=== PATIENT | male | born 1945 | race Caucasian/White ===

== ENCOUNTER 2017-06-13 09:22 | Emergency (ER) | payer OTHER, MEDICAID ==
[~2017-06-13] VITALS: Ht 160 cm; Wt 86.2 kg
[~2017-06-13 09:22] MED LIST: ALPR0.5T8 PO; ASPI81TA2 PO; TRAM50TA2 PO
[2017-06-13 09:34] VITALS: BP_SYST 157
--- NOTE | 2017-06-13 09:40 | NUR ---
Patient to ER bed 2 to gown for evaluation. Side rails up. Report given to Valeriano ROSA.
--- NOTE | 2017-06-13 09:41 | NUR ---
Pt reports having fallen 06/11/[address] broken [address]. C/O 05/11 left shoulder pain which increases with palp to humural head as well both active and passive ROM. Patient reports that during the fall he hit his chest and abdomen, but is not having any pain other than the shoulder at this time.
--- NOTE | 2017-06-13 09:43 | NUR ---
ER Dr. Mathis at bedside examining patient.
--- NOTE | 2017-06-13 10:00 | NUR ---
Sling applied.Pt tolerated well.
[2017-06-13] MEDS ORDERED: IBUPROFEN 600 MG TABLET PO ONE (10:15)
[2017-06-13 10:20] VITALS: BP_SYST 156
--- NOTE | 2017-06-13 10:20 | NUR ---
Patient given written and verbal discharge instructions and verbalizes understanding. ER MD discussed with patient the results and treatment provided. Patient in stable condition. ID arm band removed. Patient educated on pain management and to follow up with PMD. Pain Scale 5. Opportunity for questions provided and answered.
== END 2017-06-13 10:20 | disposition home or self-care (01) ==
LOC: SED 09:22
DX: S40.012A Contusion of left shoulder, initial encounter (principal); G89.29 Other chronic pain; Z79.899 Other long term (current) drug therapy; W01.0XXA Fall on same level from slipping, tripping and stumbling without subsequent striking against object, initial encounter; Y93.89 Activity, other specified; Y92.89 Other specified places as the place of occurrence of the external cause; Y99.8 Other external cause status
CPT/HCPCS: 73030; 99284

== ENCOUNTER 2018-11-18 12:53 | Emergency (ER) | payer OTHER, MEDICAID ==
[~2018-11-18] VITALS: Ht 160 cm; Wt 83.9 kg
[~2018-11-18 12:53] MED LIST changes: +ASPI-1155 PO; -ASPI81TA2 PO
[2018-11-18 14:30] VITALS: BP_SYST 178
[2018-11-18 16:00] VITALS: BP_SYST 178
[2018-11-18] MEDS ORDERED: KETOROLAC TROMETHAMINE 30 MG VIAL IM ONE (16:00)
== END 2018-11-18 16:00 | disposition home or self-care (01) ==
LOC: SED 12:53
DX: S46.911A Strain of unspecified muscle, fascia and tendon at shoulder and upper arm level, right arm, initial encounter (principal); I10 Essential (primary) hypertension; M19.90 Unspecified osteoarthritis, unspecified site; Z79.82 Long term (current) use of aspirin; Z79.899 Other long term (current) drug therapy; X50.0XXA Overexertion from strenuous movement or load, initial encounter; Y93.89 Activity, other specified; Y92.89 Other specified places as the place of occurrence of the external cause; Y99.8 Other external cause status
CPT/HCPCS: 73030; 96372; 99283; J1885